=== PATIENT | male | born 2005 | race American Indian/Alaskan Native ===

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

== ENCOUNTER 2024-03-26 19:27 | Emergency (ER) | payer SELFPAY ==
[2024-03-26 19:58] VITALS: BP 136/85; PULSE 92; RESP 16; TEMP 36.8; O2SAT 99; BMI 22.5
--- NOTE | 2024-03-26 20:58 | ED_ITS ---
HPI - Pediatric HENT General Chief complaint: Nasal Problem Stated complaint: Broken Nose Time Seen by Provider: 03/26/24 20:29 Source: patient Mode of arrival: Family Vehicle History of Present Illness HPI Narrative: Patient presents for evaluation of possible nasal bone fracture. Was playing a basketball game when he was elbowed in the nose. Initially there was some bleeding, but that has since resolved. Related Data Previous Rx's Medication Instructions Recorded ibuprofen 600 mg tablet 600 mg PO Q6H PRN fever or pain 08/08/20 #24 tabs ondansetron 4 mg disintegrating 4 mg PO Q8H PRN nausea and 08/08/20 tablet vomiting #10 tabs Allergies Allergy/AdvReac Type Severity Reaction Status Date / Time No Known Drug Allergies Allergy Verified 08/07/19 15:24 Patient History Social History Smoking Status: Never smoker Smoking Status: Never smoker Substance Use Type: does not use Pediatric Exam Initial Vital Signs Initial Vital Signs: Vital Signs Temperature 98.3 F 03/26/24 19:58 Pulse Rate 92 H 03/26/24 19:58 Respiratory Rate 16 03/26/24 19:58 Blood Pressure 136/85 03/26/24 19:58 Pulse Oximetry 99 03/26/24 19:58 Oxygen Delivery Method Room Air 03/26/24 19:58 Const: Awake, alert, no acute distress, nontoxic appearing HEENT: PERRL, no maxillary sinus tenderness. Minimal swelling L lateral nose. No nasal septal hematoma, no active bleeding Skin: Warm, Dry, intact, no rashes Neuro: AO x3, CN II-XII grossly intact, moves all extremities General Limitations: no limitations Course Orders Ordered: ED Orders 03/26/24 20:57 XR nasal bones min 3V Stat Vital Signs Vital signs: Vital Signs - 8 hr 03/26/24 22:05 Pulse Rate 85 Respiratory Rate 17 Blood Pressure 122/74 Pulse Oximetry 97 Oxygen Delivery Method Room Air Medical Decision Making Imaging Data Extremity x-ray #1: Radiologist's Impression: PROCEDURE: XR NASAL BONES MIN 3V INDICATIONS: elbow to face, nose swelling TECHNIQUE: 3 views of the nasal bones acquired. COMPARISON: None available. FINDINGS: Bones: Fracture of the nasal bone seen on the lateral projection. Minimal displacement. No dislocations. Nasal septum is midline. Normal nasociliary nerve grooves are noted. Soft tissues: No suspicious soft tissue calcifications. IMPRESSION: Nasal bone fracture. Dictated by: Dennys Felipe M.D. on 03/26/2024 at 22:03 Approved by: Dennys Felipe M.D. on 03/26/2024 at 22:07 [facility] Narrative Medical decision making narrative: Nasal bone fracture, no nasal septal hematoma. No active bleeding. Patient given referral number to ENT if he has deformity after swelling decreases in about a week. Recommended Tylenol, ibuprofen, ice, Afrin as needed for congestion. Discharge Plan Departure Patient Disposition: Home Clinical Impression: Fracture of nasal bone Instructions: DI for Nose Fracture Activity Restrictions/Additional Instructions: Your x-rays show a nasal bone fracture. You can use Afrin to help open your sinus passages. Avoid blowing your nose. Apply ice to areas of swelling. Follow up with ear nose and throat, a referral number has been provided. Prescriptions: No Action ibuprofen 600 mg tablet 600 mg PO Q6H PRN (Reason: fever or pain) Qty: 24 0RF ondansetron 4 mg tablet,disintegrating 4 mg PO Q8H PRN (Reason: nausea and vomiting) Qty: 10 0RF Referrals: Taras Cárdenas MD [Physician] - Ted Yap PA-C [Primary Care Provider] - Stand Alone Forms: Patient Portal/API
[2024-03-26 22:05] VITALS: BP 122/74; PULSE 85; RESP 17; O2SAT 97
== END 2024-03-26 22:06 | disposition home or self-care (01) ==
PROVIDERS: Emergency Provider Emergency Medicine; PCP Physician Assistant
DX: S02.2XXA Fracture of nasal bones, initial encounter for closed fracture (principal); W50.0XXA Accidental hit or strike by another person, initial encounter; Y93.67 Activity, basketball
CPT/HCPCS: 70160; 99281; 99283